=== PATIENT | male | born 1955 | race Caucasian/White ===

== ENCOUNTER 2020-11-08 08:40 | Emergency (ER) | payer OTHER, MEDICARE ==
[~2020-11-08 08:40] MED LIST: FLOMAX0.4 MG PO; MACROBID100 MG PO
[2020-11-08 09:21] LABS: BASOPHIL 0.5 % (0-2); EOSINOPHIL 1.1 % (0-7); HGB 10.5 g/dl (13.2-18.0); LYMPHOCYTE 8.5 % (15-48); MCH 27.3 pg (25.0-31.0); MCHC 30.9 g/dL (32.0-36.0); MCV 88.3 fL (78.0-100.0); MONOCYTE 9.2 % (0-12); MPV 9.5 fL (6.0-9.5); NEUTROPHIL 80.2 % (41-80); NRBC 0; PLT 249 K/uL (150-400); RBC 3.85 M/uL (4.70-6.00); WBC 7.3 K/uL (4.0-10.5)
[2020-11-08 09:33] LABS: INR 1.26 (0.9-1.2); PTT 40.1 SECONDS (22.2-34.7)
[2020-11-08 09:42] LABS: ALBUMIN 2.6 g/dL (3.4-5.0); BILIRUBIN - TOTAL 1.4 mg/dL (0.2-1.0); GLOBULIN (CALCULATION) 4.4 g/dL; POTASSIUM 4.7 mmol/L (3.5-5.1)
[2020-11-08 13:45] LABS: HCT 30.2 % (42.0-52.0); HGB 9.4 g/dL (13.2-18.0)
== END 2020-11-08 15:08 | disposition other institution (70) ==
LOC: FER 08:40
PROVIDERS: Emergency Medicine
DX: K92.0 Hematemesis (principal); C79.9 Secondary malignant neoplasm of unspecified site; F17.200 Nicotine dependence, unspecified, uncomplicated; Z88.5 Allergy status to narcotic agent
CPT/HCPCS: 36415; 71045; 80053; 83540; 83550; 85014; 85018; 85025; 85610; 85730; 86850; 86900; 86901; 93005; J1170; J2354; J2550

== ENCOUNTER 2020-11-27 10:55 | Emergency (ER) | payer OTHER ==
[2020-11-27 11:52] LABS: BASOPHIL 0.1 % (0-2); EOSINOPHIL 0 % (0-7); HCT 38.6 % (42.0-52.0); HGB 12.1 g/dl (13.2-18.0); LYMPHOCYTE 2.5 % (15-48); MCH 27.6 pg (25.0-31.0); MCHC 31.3 g/dL (32.0-36.0); MCV 87.9 fL (78.0-100.0); MONOCYTE 7.5 % (0-12); NEUTROPHIL 89.3 % (41-80); NRBC 0; PLT 152 K/uL (150-400); RBC 4.39 M/uL (4.70-6.00); RDW 17.2 % (11.5-14.0)
[2020-11-27 12:05] LABS: INR 1.23 (0.9-1.2); PROTHROMBIN TIME 14.7 SECONDS (11.4-13.6); PTT 28.5 SECONDS (22.2-34.7)
[2020-11-27 12:32] LABS: ALBUMIN 2.4 g/dL (3.4-5.0); BILIRUBIN - TOTAL 2.3 mg/dL (0.2-1.0); BUN/CREAT RATIO (CALC) 47.2 RATIO; CREATININE 1.61 mg/dL (0.67-1.17); GLOBULIN (CALCULATION) 3.6 g/dL; POTASSIUM 5.2 mmol/L (3.5-5.1); PRO-BNP 420 pg/mL (<125)
== END 2020-11-27 15:20 | disposition home or self-care (01) ==
LOC: FER 10:55
PROVIDERS: Emergency Medicine
DX: R06.02 Shortness of breath (principal); E86.0 Dehydration; N17.9 Acute kidney failure, unspecified; J98.4 Other disorders of lung; E11.9 Type 2 diabetes mellitus without complications; I10 Essential (primary) hypertension; Z98.890 Other specified postprocedural states; Z87.19 Personal history of other diseases of the digestive system; Z85.038 Personal history of other malignant neoplasm of large intestine; Z90.49 Acquired absence of other specified parts of digestive tract; Z88.5 Allergy status to narcotic agent; Z88.8 Allergy status to other drugs, medicaments and biological substances
CPT/HCPCS: 36415; 36600; 71045; 80053; 82803; 83880; 84484; 85025; 85610; 85730; 93005; J7040; P9046